=== PATIENT | female | born 1945 ===

== ENCOUNTER 2024-12-29 09:38 | Outpatient (AMB) | payer MEDICARE, SELFPAY ==
[2024-12-29 09:52] VITALS: BMI 25.8
--- NOTE | 2024-12-29 09:52 | MHC.OFFVIS ---
Vital Signs 12/29/24 09:52 Height 5 ft 7 in Weight 165 lb BMI 25.8 Intake Visit Reasons: left foot pain Intake Note: Mara is an 79 year old female who presents today as a new patient for an evaluation of her left foot pain. Patient states since the appointment was made she has seen improvement in her pain. She reports she had a fall around the end of October and her pain in her left foot came after. She has tried nothing for her foot pain at this time. Allergies Seasonal Allergies Allergy (Verified 12/29/24 09:53) sneezing HPI Comments Details: The patient is an 79-year-old female with a past medical history as seen below presenting with left foot pain after fall in October. The pain was described as an electrical type of nerve pain, which has improved over time but still persists intermittently. The patient has not taken any anti-inflammatory medications due to concerns about chronic kidney disease. The patient also reports also having pain to bilateral knees, lower back, and the right arm which she attributes to overuse and exercise. Patient states she also notices a callus to the lateral aspect of the left foot but states she uses a callus patch which helps resolve the issue. She denies any other pedal concerns at this time. Patient states she wears supportive shoe gears and avoids barefoot walking at home. Patient states she also uses inserts. [facility] Medical History (Updated 12/29/24 @ 11:17 by Candida Sanford DPM) Kaur's neuroma of left foot Bilateral knee pain Right arm pain Injury of left foot Left foot pain Review of Systems Const Details: - Musculoskeletal: Reports pain in the left foot, bilateral knees, and right arm after fallen October. - Neurological: Reports intermittent nerve pain in the left foot. - Dermatological: Reports presence of a callus on the left foot. All systems reviewed & are unremarkable except as noted in HPI and below Physical Exam Vital Signs: BMI result Body Mass Index 25.8 Extrem Other: Left lower extremity focused physical exam: Derm: Pre hyperkeratotic lesion noted to the lateral aspect of the left foot in the area of the 5th metatarsal head. No open lesions abrasions or wounds noted. No ecchymosis or discoloration noted. No maceration noted. No active bleeding, purulence, or drainage noted. No clinical signs of infection. Vascular: DP/PT pulses palpable. Capillary refill time less than 3 seconds. Temperature gradient warm to warm. Pedal hair absent. Varicosities noted. No edema noted. Neuro: Protective sensation is grossly intact. MSK: Pain on palpation to the 3rd toe. Mild pain on palpation to the plantar aspect of the foot in the area of submetatarsal heads. Negative squeeze test. Negative Murphy sign. Range of motion of the forefoot hindfoot and ankle within normal limits. No crepitus or fluctuance noted. Stiff gait noted unassisted. Mild hammertoe deformities noted. Results Reviewed Results Reviewed: Ordered left foot weightbearing three-views x-rays, bilateral knee x-rays, and right shoulder x-rays. Assessment & Plan Assessment & Plan (1) Injury of left foot: Code(s): S99.922A - Unspecified injury of left foot, initial encounter Category: Medical Qualifiers: Encounter type: initial encounter Qualified Code(s): S99.922A - Unspecified injury of left foot, initial encounter (2) Left foot pain: Code(s): M79.672 - Pain in left foot Category: Medical (3) Right arm pain: Code(s): M79.601 - Pain in right arm Category: Medical (4) Bilateral knee pain: Code(s): M25.561 - Pain in right knee; M25.562 - Pain in left knee Category: Medical Qualifiers: Chronicity: acute Qualified Code(s): M25.561 - Pain in right knee; M25.562 - Pain in left knee (5) Kaur's neuroma of left foot: Code(s): G57.62 - Lesion of plantar nerve, left lower limb Category: Medical Plan Patient was informed and verbally consented to the use of an ambient scribe for clinic note documentation during this visit. I discussed with the patient the likelihood of a neuroma causing her foot pain and the potential benefits of anti-inflammatory medications, while considering her concerns of chronic kidney disease. We talked about the role of physical therapy in managing her tendinitis and musculoskeletal pain, and I recommended obtaining x-rays to rule out any fractures. I advised her on the possibility of an orthopedic referral if further intervention is needed based on x-ray findings. - Ordered x-rays to be performed prior to next visit. - Provided referral for physical therapy. - Provided referral for orthopedic consultation. - Advised patient to avoid barefoot walking and to continue wearing supportive shoe gear. - Advised patient to gradually return to normal activity level using pain as a guide. - Advised patient to take ibuprofen or Tylenol PRN for pain. - Advised patient to take caution when taking ibuprofen and take sparingly due to concerns of chronic kidney disease. RTC in 2 months. Orders: Orders XR Knee Jl 3V Today M25.561 - Pain in right knee, M25.562 - Pain in left knee XR foot LT min 3V Today M79.672 - Pain in left foot, S99.922A - Unspecified injury of left foot, initial encounter PT Evaluation and Treatment Today M25.561 - Pain in right knee, M25.562 - Pain in left knee, M79.601 - Pain in right arm, M79.672 - Pain in left foot, S99.922A - Unspecified injury of left foot, initial encounter XR shoulder RT min 2V Today M79.601 - Pain in right arm Referrals Orthopedics Referral M25.561 - Pain in right knee, M25.562 - Pain in left knee, M79.601 - Pain in right arm Coding Level of Care Code New Pt Level 4 (43989) Diagnoses Injury of left foot, initial encounter S99.468P Encounter type: initial encounter Left foot pain M79.672 Right arm pain M79.601 Acute pain of both knees M25.561; M25.562 Chronicity: acute Kaur's neuroma of left foot G57.62 Time Spent (min) 50
--- OUTSIDE RECORDS SUMMARY | 2024-12-29 10:48 | XMS_ITS | Clinical Summary ---
Author Organization [address] Building Address [address] [place] [phone] Phone Care Team Providers Care Lab Support Tech Name Role Phone Jennifer Miles NP Primary Care Provider [phone] Allergies No known active allergies Medications fluticasone propionate (FLONASE) 50 mcg/actuation nasal spray Administer 2 sprays into affected nostril(s). 4 Active cholecalciferol (VITAMIN D-3) 25 mcg (1,000 unit) capsule Take 1 Dose by mouth. Active estradioL (Imvexxy Maintenance Pack) 10 mcg insert Insert 1 Dose into the vagina. Active ascorbic acid (VITAMIN C) 1,000 mg tablet Take 1 tablet (1,000 mg total) by mouth 1 (one) time each day. Active VITAMIN B COMPLEX ORAL Take 1 Tablet by mouth daily. Active multivit-min/ir on/FA/vit K/lut (CENTRUM SILVER WOMEN ORAL) Take 1 Tablet by mouth daily. Active valsartan (DIOVAN) 80 mg tablet TAKE 1 TABLET DAILY 90 tablet 1 5 Active ALPRAZolam (XANAX) 0.5 mg tablet Take 1 tablet (0.5 mg total) by mouth 1 (one) time each day if needed for anxiety. Max Daily Amount: 0.5 mg 30 tablet Active GENERIC EXTERNAL MEDICATION Take 1 tablet by mouth 1 (one) time each day. [place] Naturals (vitamins) 12/21/19 25 Discontin ued(Thera py completed ) magnesium gluconate 12.5 mg magne- sium (250 mg) tablet Take by mouth. 12/20 25 Discontin ued(Thera py completed ) Active Problems Problem Noted Date Diagnosed Date Anxiety 05/31/2022 Stage 3a chronic kidney disease ([facility] V24, [facility] /[facility] V28) 05/31/2022 Hypercholesterolemia 05/31/2022 Primary hypertension 05/31/2022 Osteopenia 05/31/2022 Prediabetes 05/31/2022 Encounters Date Type Department Care Team Description 12/20/2024 3:45 PM EDT Office Visit Internal Medicine - [address] [phone] Jennifer Miles NP Pain in both thighs (Primary Dx); Muscle strain of lower leg, unspecified laterality, initial encounter; Left foot pain 11/03/2024 10:15 AM EDT Office Visit Internal Medicine - [address] [phone] Jennifer Miles NP Prediabetes (Primary Dx); Primary hypertension; Hypercholesterolemia; Stage 3a chronic kidney disease ([facility] V24, [facility] V28); Anxiety 11/01/2024 10:15 AM EDT Lab Draw Station - [address] Prediabetes; Hypercholesterolemia 10/28/2024 Telephone Internal Medicine - [address] [phone] Jennifer Miles NP 10/21/2024 Telephone Gastroenterology - [address] [facility] [address] [facility] [address] [place] [address] Ramana Choudhury MD from Last 3 Months Immunizations Immunization Administration Dates Next Due Influenza trivalent, 0.5mL ( Fluad) 65yo and older 11/23/2021,11/23/2020 Influenza trivalent, 0.5mL ( Fluzone High-dose) 65yo and older 11/07/2024 Influenza trivalent, 0.5mL, preservative free (Fluarix; FluLaval; Fluzone) ages 6mo and older (Afluria) 3 years and older 11/18/2018,11/17/2017,11/04/2016,2015 Surgical History Surgery Date Site/Laterality Comments CATARACT EXTRACTION PROCEDURE: HISTORICAL CATARACT REMOVAL CHOLECYSTECTOMY PROCEDURE: HISTORICAL CHOLECYSTECTOMY Family History Medical History Relation Name Comments Breast cancer Aunt Heart attack Father Heart failure Father Hyperlipidemia Father Hypertension Father Diabetes Maternal Grandmother Lung cancer Mother Relation Name Status Comments Aunt Alive Father Maternal Grandmother Mother Social History Tobacco Use Types Packs/Day Years Used Date Smoking Tobacco: Never Smokeless Tobacco: Never Tobacco Cessation:Counseling Given: Not Answered Alcohol Use Standard Drinks/Week Comments Not Currently 0 (1 standard drink = 0.6 oz pur e alcohol) Comments No Sex and Gender Information Value Date Recorded Sex Assigned at Not on file Legal Sex Female 12:43 PM EST Gender Identity Not on file Sexual Orientation Not on file Obstetrics History Last Filed Vital Signs Vital Sign Reading Time Taken Comments Blood Pressure 136/86 12/20/2024 4:25 PM EDT Pulse 91 12/20/2024 4:11 PM EDT Temperature 36.6 C (97.8 F) 05/05/2024 9:59 AM EDT Respiratory Rate - - Oxygen Saturation 98% 05/05/2024 9:59 AM EDT Inhaled Oxygen Concentration - - Weight 76.8 kg (169 lb 6.4 oz) 12/20/2024 4:11 P M EDT Height 170.2 cm (5' 7 ) 12/20/2024 4:11 PM EDT Body Mass Index 26.53 12/20/2024 4:11 PM EDT Plan of Treatment Upcoming Encounters Date Type Department Care Team (Late st Contact Info) Description 03/09/2025 10:15 AM EST Office Visit Internal Medicine - [facility] [address] [place] [address] Jennifer Miles NP [address] [place] [address] 05/03/2025 3:00 PM EDT [facility] [address] [facility] [place] [phone] Jennifer Miles, ANUP [address] [facility] [place] [address] Health Maintenance Due Date Last Done Comments DTaP,Tdap,and Td Vaccines (1 - Tdap) 06/24/1964 Falls Risk Assessment 03/26/2023 Medicare Annual Wellness Visit 03/26/2023 Osteoporosis Screening (Bone Density Screening) 03/26/2023 Social Influencers of Health Screening 03/26/2023 Depression Screening 02/25/2024 Hypertension/CHF/CAD Annual BMP Blood Test 11/01/2025 11/01/2024, 04/27/2024, 11/05/2023, Additional history exists Cholesterol Screening (Lipid Panel) 11/01/2029 11/01/2024, 04/27/2024, 11/05/2023, Additional history exists COVID-19 Vaccine Discontinued 04/17/2020, 03/25/2020 Influenza Vaccine Completed 11/07/2024, , 11/23/2020, Additional history exists HIB Vaccines Aged Out No longer eligi ble based on patient's age to complete this topic HPV Vaccines Aged Out No longer eligi ble based on patient's age to complete this topic Hepatitis A Vaccines Aged Out No long er eligible based on patient's age to complete this topic Hepatitis B Vaccines Aged Out No long er eligible based on patient's age to complete this topic IPV Vaccines Aged Out No longer eligi ble based on patient's age to complete this topic MMR Vaccines Aged Out No longer eligi ble based on patient's age to complete this topic Meningococcal ACWY Vaccine Aged Out N o longer eligible based on patient's age to complete this topic Meningococcal B Vaccine Aged Out No l onger eligible based on patient's age to complete this topic Pneumococcal Vaccine: 50+ Years Discontinued RSV Immunization Adult Patients Discontinued RSV Immunization Patients Under 20 months Aged Out No longer eligible based on patient's age to complete this topic Varicella Vaccines Aged Out No longer eligible based on patient's age to complete this topic Zoster Vaccines Discontinued Procedures Procedure Name Priority Date/Time Associated Diagnosis Comments COMPREHENSIVE METABOLIC PANEL Routine 11/01/2024 10:15 AM EDT Prediabetes LIPID PANEL WITH REFLEX TO DIRECT LDL Routine 11/01/2024 10:15 AM EDT Hypercholesterolem ia HEMOGLOBIN A1C Routine 11/01/2024 10:15 AM EDT Prediabetes from Last 3 Months Results * (ABNORMAL) Lipid panel with reflex to direct LDL (11/01/2024 10:15 AM EDT) Cholesterol 202(H) 0 - 200 mg/dL LAB CHEMISTRY METHOD 11/01/2024 3:23 PM EDT [facility] Triglycerides 94 0 - 150 mg/dL LAB CHEMISTRY METHOD 11/01/2024 3:23 PM EDT [facility] HDL 65 >=40 mg/dL LAB CHEMISTRY METHOD 11/01/2024 3:23 PM EDT [facility] LDL Calculated 118(H) 0 - 100 mg/dL LAB CHEMISTRY METHOD 11/01/2024 3:23 PM EDT [facility] Comment:Estimated LDL Calcul ated using equation: Total cholesterol - HDL cholesterol - (Triglycerides/5) VLDL Cholesterol Yayo 18.8 mg/dL LAB CHEMISTRY METHOD 11/01/2024 3:23 PM EDT [facility] Non HDL Chol. (LDL+VLDL) 137 <145 mg/dL LAB CHEMISTRY METHOD 11/01/2024 3:23 PM EDT [facility] Chol/HDL Ratio 3.1 0.0 - 4.4 LAB CHEMISTRY METHOD 11/01/2024 3:23 PM T [facility] Blood Venous blood specimen / Unknown Venipuncture / Unknown 11/01/2024 10:15 AM EDT 11/01/2024 10:15 AM EDT us Jennifer Miles NP LAB BLOOD ORDERABLES Final Resu lt [facility] [address] [place] [address], * Hemoglobin A1c (11/01/2024 10:15 AM EDT) [facility] Hemoglobin A1C 6.1 <6.5 % LAB CHEMISTRY METHOD 11/02/2024 9:05 AM EDT [facility] Mean Bld Glu Estim. 128 mg/dL LAB CHEMISTRY METHOD 11/02/2024 9:05 AM EDT [facility] Blood Venous blood specimen / Unknown Venipuncture / Unknown 11/01/2024 10:15 AM EDT 11/01/2024 10:15 AM EDT Jennifer Miles NP LAB BLOOD ORDERABLES Final Resu lt [facility] [address] [place] [address], * (ABNORMAL) Comprehensive metabolic panel (11/01/2024 10:15 AM EDT) [facility] Sodium 137 133 - 145 mmol/L LAB CHEMISTRY METHOD 11/01/2024 3:23 PM [facility] Potassium 4.4 3.5 - 5.5 mmol/L LAB CHEMISTRY METHOD 11/01/2024 3:23 PM [facility] Chloride 105 96 - 110 mmol/L LAB CHEMISTRY METHOD 11/01/2024 3:23 PM [facility] CO2 28 21 - 32 mmol/L LAB CHEMISTRY METHOD 11/01/2024 3:23 PM [facility] Anion Gap 4 3 - 11 LAB CHEMISTRY METHOD 11/01/2024 3:23 PM [facility] Glucose 87 70 - 100 mg/dL LAB CHEMISTRY METHOD 11/01/2024 3:23 PM [facility] BUN 13 5 - 25 mg/dL LAB CHEMISTRY METHOD 11/01/2024 3:23 PM [facility] Creatinine 1.01 0.50 - 1.10 mg/dL LAB CHEMISTRY METHOD 11/01/2024 3:23 PM [facility] eGFR 56(L) >=60 mL/min/1. 73m2 LAB CHEMISTRY METHOD 11/01/2024 3:23 PM [facility] Comment:Calculation based on the Chronic Kidney Disease Epidemiology Collaboration (CKD-EPI) equation refit without adjustment for race. BUN/Creatinine Ratio 12.9 LAB CHEMISTRY METHOD 11/01/2024 3:23 PM [facility] Calcium 9.6 8.5 - 10.5 mg/dL LAB CHEMISTRY METHOD 11/01/2024 3:23 PM [facility] AST (SGOT) 24 10 - 42 unit/L LAB CHEMISTRY METHOD 11/01/2024 3:23 PM [facility] ALT (SGPT) 20 10 - 60 unit/L LAB CHEMISTRY METHOD 11/01/2024 3:23 PM [facility] Alkaline Phosphatase 81 42 - 121 unit/L LAB CHEMISTRY METHOD 11/01/2024 3:23 PM [facility] Total Protein 7.2 6.0 - 8.0 g/dL LAB CHEMISTRY METHOD 11/01/2024 3:23 PM [facility] Albumin 3.9 3.2 - 5.0 g/dL LAB CHEMISTRY METHOD 11/01/2024 3:23 PM [facility] Total Bilirubin 0.7 0.0 - 1.4 mg/dL LAB CHEMISTRY METHOD 11/01/2024 3:23 PM [facility] Blood Venous blood specimen / Unknown Venipuncture / Unknown 11/01/2024 10:15 AM EDT 11/01/2024 10:15 AM EDT Jennifer Ginger [employer] LAB BLOOD ORDERABLES [facility] [address] [place] [address], from Last 3 Months Insurance [place] Care Teams Lab Support Tech Relationship Specialty Start Date End Date Jennifer Miles NP [facility] [place] [address] PCP - General Primary Care 01/08/24
--- OUTSIDE RECORDS SUMMARY | 2024-12-29 10:48 | XMS_ITS | Patient Health Record ---
Author Organization [facility] Address [address] [address] Care Team Providers Care Trailer Mechanic Name Role Phone IRENE HEBERT, ASHELY Primary Care Provider Anna Max Unavailable [phone] Allergies No Known Allergies Reason For Referral No Information Medications Medication SIG (Take, Route, Frequency, Duration) Notes Start Date End Date Status Vitamin B Complex - as directed Orally Active Valsartan 80 MG 1 tablet Orally Once a day Active Terazol 3 0.8 % 1 application at bed time Vaginal Once a day; Duration: 3 day(s) 04/30/2018 Active Vitamin D3 1000 IU ORAL daily; Duration: -3 2011 Active Augmentin 500-125 MG 1 tablet Orally Twi ce a day; Duration: 7 days 04/30/2018 Active Multi-Vitamin Daily 1 tablet Orally Once a day Active Red Yeast Rice Orally daily No t-Taking Yuvafem 10 MCG 1 tablet Vaginal TWI CE A WEEK; Duration: 90 days 06/05/2020 Active Yuvafem 10 MCG 1 tablet Vaginal TWI CE A WEEK; Duration: 90 days 09/05/2022 Active Estradiol 10 MCG _insert 1 TABLET VAG INALLY THREE TIMES A WEEK Active Problems Problem Type SNOMED Code ICD Code Onset Dates Problem Status W/U Status Risk Notes Problem Postmenopausal atrophic vaginitis (01370153) Postmenopausal atrophic vaginitis (N95.2) Active confirmed Problem Postmenopausal bleeding (65976770) Postmenopausal bleeding (N95.0) Active confirmed Problem Benign essential hypertension (9316328) Essential hypertension, benign (401.1) Active confirmed Major Problem Menopausal symptom (56934485) Symptomatic menopausal or female climacteric states (627.2) Active confirmed Major Problem Postmenopausal atrophic vaginitis (96807883) Postmenopausal atrophic vaginitis (627.3) Active confirmed Diag Problem Gynecological examination normal (730292849756165) Routine gynecological examination (V72.31) Active confirmed Major Problem Screening for malignant neoplasm of colon (994940998) Special screening for malignant neoplasms, colon (V76.51) Active confirmed Major Plan Of Treatment Pending Test Test Name Order Date Sonohysterogram 08/21/2016 MAMMOGRAM, SCREENING 07/06/2015 MAMMOGRAM, SCREENING 09/05/2022 Urinalysis 05/10/2020 ONE SWAB 01/04/2021 ENDOMETRIAL BX 08/21/2016 URINE DIPSTICK 04/08/2017 BONE DENSITY 06/05/2020 MM Digital Mammo Screening 09/05/2022 Next Appt Details Provider Name:Anna goldstein, 04/25/2025 01:40:00 PM, [address] [facility], [address], [place], [address], Insurance Providers Payer Name Payer Address Payer Phone Subscriber Number Group Number Insured Name Patient Relationship to Insured Coverage Start Date Coverage End Date [employer] [address] [place] [id number] [phone] TRAN [id number] Self - patient is the insured Medical (General) History Medical History History ICD Code Postmenopausal atrophic vaginitis N95.2 Essential (primary) hypertension I10 Menopausal and female climacteric states N95.1 Postmenopausal bleeding N95.0 Surgical History Surgery Date(Month/Year) Colonoscopy Cholecystectomy [facility] Cataract Surgery Hospitalization History Reason Date(Month/Year) 3 Vaginal Deliveries
== END 2024-12-29 10:50 | disposition home or self-care (01) ==
PROVIDERS: PCP Nurse Practitioner Primary Care; Visit Provider Student in an Organized Health Care Education/Training Program
DX: S99.922A Unspecified injury of left foot, initial encounter (principal); M79.672 Pain in left foot; M79.601 Pain in right arm; M25.561 Pain in right knee; M25.562 Pain in left knee; G57.62 Lesion of plantar nerve, left lower limb
CPT/HCPCS: 99204

== ENCOUNTER → 2024-12-29 09:38 | Outpatient (BNVA) | payer MEDICARE, SELFPAY | PROVIDERS: PCP Nurse Practitioner Primary Care; Visit Provider Student in an Organized Health Care Education/Training Program | DX: S99.922A Unspecified injury of left foot, initial encounter (principal); M79.672 Pain in left foot; M79.601 Pain in right arm; M25.561 Pain in right knee; M25.562 Pain in left knee; G57.62 Lesion of plantar nerve, left lower limb | CPT/HCPCS: 99202 ==